=== PATIENT | female | born 1970 | race Caucasian/White ===

== ENCOUNTER 2022-08-23 16:39 | Outpatient (CLI) | payer OTHER, SELFPAY ==
--- NOTE | ~2022-08-23 | MM_ITS ---
EXAMINATION: MM screening tamela BI w giovanna HISTORY: Screening mammogram TECHNIQUE: Craniocaudal and mediolateral oblique 3-D tomosynthesis images were obtained and synthetic 2-D images were generated. CAD analysis was submitted and interpreted. COMPARISON: 01/2019 right screening and left diagnostic mammogram and complete left breast ultrasoun d examination BREAST PARENCHYMAL COMPOSITION: The breasts are extremely dense, which lowers the sensitivity of mamm ography. FINDINGS: There is no evidence of suspicious mass, calcification, or architectural distortion to sugg est malignancy in either breast. There has been no suspicious interval change. IMPRESSION: 1. No mammographic evidence of malignancy. 2. Recommend routine screening mammography in one year. Ultrasound may be of significant supplemental value for screening in the setting of extremely dense fibroglandular stroma, which may obscure rodríguez s. BI-RADS Category 1: Negative Reviewed, dictated and finalized at location A. IMPRESSION: 1. No mammographic evidence of malignancy. 2. Recommend routine screening mammography in one year. Ultrasound may be of si gnificant supplemental value for screening in the setting of extremely dense fi broglandular stroma, which may obscure masses. BI-RADS Category 1: Negative
== END 2022-08-23 16:40 | disposition home or self-care (01) ==
PROVIDERS: Visit Provider Obstetrics & Gynecology
DX: Z12.31 Encounter for screening mammogram for malignant neoplasm of breast (principal)
CPT/HCPCS: 77063; 77067

== ENCOUNTER 2023-05-17 15:27 | Outpatient (CLI) | payer OTHER, SELFPAY ==
--- NOTE | ~2023-05-17 | MR_ITS ---
EXAMINATION: MR FRIAS wo/w con DATE: 05/17/2023 16:25 INDICATION: Right-sided hearing loss with tinnitus and numbness/pressure to the right ear TECHNIQUE: Magnetic resonance imaging (MRI) of the brain and brainstem was performed without and with 11 mL Multihance intravenous contrast. Sequences included sagittal and axial T1-weighted FSE, axial diffusion-weighted FS EPI, axial T2*-weighted GRE, axial T2-weighted FLAIR Propeller, axial T2-weight ed Propeller, small ikwau-xv-shwh coronal FIESTA, small skxdl-nt-wxkv coronal T1-weighted FSE, and sm all rrmxp-yp-tdul axial T1-weighted SPGR. Postcontrast sequences included axial T1-weighted FSE, smal l vpksh-xf-kyuw coronal T1-weighted FSE, and small bzjwv-et-cexn axial T1-weighted SPGR. Apparent dif fusion coefficient (ADC) maps were created. COMPARISON: None. FINDINGS: There are no areas of restricted diffusion to suggest acute infarction. No intracranial hemorrhage or abnormal intracranial mass lesion. There are no intraparenchymal signal abnormalities seen on the ot her pulse sequences. The ventricles are symmetric and normal in size. There are no abnormal extra-axi al fluid collections. Normal seventh/eighth cranial nerve complexes. No cerebellopontine angles mass es. No evidence of mastoid or middle ear fluid. Flow voids are seen in the cerebral arteries on the T 2-weighted sequences consistent with their expected patency. Mild mucosal thickening the right ethmoi d sinus. Visualized orbits and soft tissues are unremarkable. There are no areas of abnormal enhancem ent on the post contrast images. IMPRESSION: 1. Normal brain MR . Reviewed, dictated and finalized at location A. IMPRESSION: 1. Normal brain MR .
== END 2023-05-17 15:28 ==
LOC: MICIMG 15:28
PROVIDERS: PCP Otolaryngology; Visit Provider Otolaryngology
DX: H90.5 Unspecified sensorineural hearing loss (principal)
CPT/HCPCS: 70553; A9577

== ENCOUNTER 2023-06-14 15:53 | Outpatient (CLI) | payer OTHER, SELFPAY ==
--- NOTE | ~2023-06-14 | CT_ITS ---
EXAMINATION: CT sinus wo con DATE: 06/14/2023 16:13 INDICATION: Chronic sinusitis. TECHNIQUE: Computed tomography (CT) of the paranasal sinuses was performed without intravenous contra st. Iterative reconstruction technique was employed. The dose-length product was 297.70 mGy-cm. COMPARISON: None FINDINGS: The frontal sinuses are hypoplastic. There is mild mucosal thickening in the right ethmoid sinuses. The maxillary and sphenoid sinuses are clear. There are bilateral Marti cells. The ostiomea angel units are patent. There is leftward deviation of the nasal septum. IMPRESSION: 1. Mild mucosal thickening in the right ethmoid sinuses. 2. Leftward deviation of the nasal septum. Reviewed, dictated and finalized at location E.
== END 2023-06-14 15:54 ==
PROVIDERS: PCP Otolaryngology; Visit Provider Otolaryngology
DX: J32.9 Chronic sinusitis, unspecified (principal); J34.2 Deviated nasal septum; J34.89 Other specified disorders of nose and nasal sinuses
CPT/HCPCS: 70486

== ENCOUNTER 2023-09-06 16:41 | Outpatient (CLI) | payer OTHER, SELFPAY ==
--- NOTE | ~2023-09-06 | MM_ITS ---
EXAMINATION: MM screening tamela BI w giovanna HISTORY: Screening mammogram TECHNIQUE: Craniocaudal and mediolateral oblique 3-D tomosynthesis images were obtained and synthetic 2-D images were generated. CAD analysis was submitted and interpreted. COMPARISON: 08/23/2022 BREAST PARENCHYMAL COMPOSITION:Dense: The breasts are extremely dense, which lowers the sensitivity o f mammography. FINDINGS: No suspicious mass, calcification, or architectural distortion are identified in either leonie ast to suggest malignancy. There has been no suspicious interval change. IMPRESSION: No mammographic evidence of malignancy. Recommend routine screening mammography in one year. BI-RADS Category 1: Negative Reviewed, dictated and finalized at location .
== END 2023-09-06 16:42 | disposition home or self-care (01) ==
LOC: ANHIMG 16:44
PROVIDERS: PCP Family Medicine; Visit Provider Obstetrics & Gynecology
DX: Z12.31 Encounter for screening mammogram for malignant neoplasm of breast (principal)
CPT/HCPCS: 77063; 77067

== ENCOUNTER 2024-08-19 16:57 | Emergency (ER) | payer OTHER, SELFPAY ==
--- NOTE | 2024-08-19 16:59 | ED_ITS ---
HPI - URI/Sore Throat General Chief Complaint: Upper Respiratory Infection Stated Complaint: Sinus Infection Symptoms Source: patient and RN notes reviewed Mode of arrival: ambulatory Limitations: no limitations History of Present Illness HPI Narrative: Patient is a 54-year-old female who presents to the [facility] with complaints of possible sinus infection. Patient reports nasal congestion, sinus pain, and sinus pressure starting this morning. Patient denies sore throat or ear pain. She does report infrequent nonproductive cough that she believes is due to the postnasal drip and congestion. She denies chest pain or shortness of breath. Denies recent fevers. Related Data Home Medications ?Medication ?Instructions ?Recorded ?Confirmed ?Last Taken ?Type alprazolam 0.5 mg tablet 0.5 mg PO TID 06/15/22 06/13/23 Unknown History cyclobenzaprine 10 mg tablet 10 mg PO TID 06/15/22 06/13/23 Unknown History zolpidem 10 mg tablet 10 mg PO QHS PRN 06/15/22 06/13/23 Unknown History eszopiclone 2 mg tablet mg 08/19/24 Unknown History Allergies Allergy/AdvReac Type Severity Reaction Status Date / Time amoxicillin Allergy Mild ITCHY/HOT Verified 08/19/24 17:08 Review of Systems Review of Systems: CONSTITUTIONAL: Denies fever, chills, or sweats. EYES: Denies visual changes, redness, or discharge. ENT: Denies otalgia and sore throat. Reports congestion and sinus pressure. CARDIOVASCULAR: Denies chest pain, palpitations, or edema. RESPIRATORY: Denies cough or dyspnea. GASTROINTESTINAL: Denies abdominal pain, nausea, vomiting, or diarrhea. GENITOURINARY: Denies dysuria or hematuria. SKIN: Denies rash or itching. MUSCULOSKELETAL: Denies back pain, joint pain, or myalgia. NEUROLOGIC: Reports headache but denies numbness or weakness. Pertinent positives per HPI. [facility] Past Medical History Medical History HPV in female Screening mammogram, encounter for GERD (gastroesophageal reflux disease) Migraines Cyst of right breast Anxiety and depression Surgical History Surgical History Delivery by section (02/28/00) primary c/s distress History of colposcopy (05/06/01) COLP/BX - HGSIL, SEVERE DYSPLASIA H/O LEEP (05/06/01) LEEP/BX-hgsil, severe dysplasia Hx of cholecystectomy (01/27/06) History of orthopedic surgery (01/28/08) foot surgery History of hysteroscopy (12/11/08) Hscope D&C/ Tubal ligation/ Endometrial Ablation Family History Family History Mother Heart disease Lung cancer Social History Social History Smoking packs per day: 1 Smoking cigarettes per day: 20.0 Smoking status: Current every day smoker Tobacco type: cigarettes Second hand tobacco smoke exposure: Yes Alcohol intake: never Substance use: never Substance use type: does not use Do You Feel Safe in your Home?: Yes Lack of Transportation: No Lack of Food: Never True Current Housing: I Have Housing Concerned About Future Housing: No Difficulty Paying Gas/Electric Bills: No Difficulty Paying for Meds: No Currently Unemployed: No Education: Associate Degree Difficulty w/ Childcare or Family Care: No Living arrangements: other Additional living arrangements comments: Occupation/Education: occupation 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 There is no relevant family history pertinent to the patient complaint. Exam Narrative: GENERAL: This is a well-nourished, well-developed patient, in no apparent distress. HEAD: normocephalic, atraumatic. EYES: Sclera clear/white. Vision is grossly intact. EARS: External ears normal, auditory canals clear and without drainage, TMs normal without perforation. Hearing grossly intact. NOSE: External nose normal. + congestion. THROAT: Mucous membranes moist, posterior pharynx clear. NECK: Neck supple, non-tender without lymphadenopathy, masses or thyromegaly. CARDIOVASCULAR: Regular rate and rhythm without murmurs, gallops, or rubs. RESPIRATORY: Clear to auscultation. Breath sounds equal bilaterally. No wheezes, rales, or rhonchi. GASTROINTESTINAL: Abdomen soft, non-tender, nondistended. Bowel sounds are active. No hepato-splenomegaly, or palpable masses. No guarding. SKIN: warm, intact with no suspicious lesions or rash, good texture and turgor. NEURO: awake, alert, and oriented to person, place and time. There were no obvious focal neurologic abnormalities. Course Course Level of Care: Express Care Visit Vital Signs Vital signs: Vital Signs Temperature 97.7 F 08/19/24 17:01 Pulse Rate 74 08/19/24 17:01 Respiratory Rate 16 08/19/24 17:01 Blood Pressure 104/75 08/19/24 17:01 Pulse Oximetry 100 08/19/24 17:01 Oxygen Delivery Room Air 08/19/24 17:01 Temperature 97.7 F 08/19/24 17:01 Pulse Rate 74 08/19/24 17:01 Respiratory Rate 16 08/19/24 17:01 Blood Pressure 104/75 08/19/24 17:01 Pulse Oximetry 100 08/19/24 17:01 Oxygen Delivery Room Air 08/19/24 17:01 Reviewed MDM - URI/Sore Throat Differential Diagnosis Differential diagnosis: Likely upper respiratory infection, sinusitis and viral infection Lab Data Labs: Lab Results 08/19/24 Range/Units 17:09 POC SARS CoV-2 Ag Negative (Negative) Critical Care Time Critical Care Time Critical Care Time: No Discharge Plan Discharge Clinical Impression: Acute bacterial rhinosinusitis Patient Disposition: Home Condition: Stable Instructions: Antibiotic Form, Sinusitis (ED) Additional Instructions: Go to the ER for any new or worsening symptoms. Avoid smoking/second-hand smoke. Continue to take Tylenol or Motrin for pain. Increase your Vitamin C intake. Use a humidifier or vaporizer at night. Take Medications as prescribed. Drink plenty of water. 8-10 glasses per day. Use flonase 2 times per day for 5 days then as needed Take mucinex 2 times per day and be sure to take with 8oz of water. Follow up with Primary provider if not getting better. Patient Language: German Prescriptions: New fluticasone propionate [Flonase Allergy Relief] 50 mcg/actuation spray,suspension 1 spray intranasal BID Qty: 16 0RF Rx Instructions: administer into each nostril azithromycin 250 mg tablet See Rx Instructions .ROUTE .COMPLEX Qty: 6 0RF Rx Instructions: For 250 mg dose pack: take 500 mg today (day 1), then 250 mg for 4 days (days 2-5) No Action eszopiclone 2 mg tablet cyclobenzaprine 10 mg tablet 10 mg PO TID alprazolam 0.5 mg tablet 0.5 mg PO TID zolpidem 10 mg tablet 10 mg PO QHS PRN progesterone micronized [Prometrium] 200 mg capsule 200 mg PO QHS 90 Days Qty: 90 3RF estradiol 1 mg tablet 1 mg PO DAILY 90 Days Qty: 90 3RF Follow-up/Referrals: PHYSICIAN,LINE SERVER [Primary Care Provider] - Time of Disposition: 17:26
[2024-08-19 17:01] VITALS: BP 104/75; PULSE 74; RESP 16; TEMP 36.5; O2SAT 100
[2024-08-19 17:24] LABS: EDCOVIDSCREEN Negative (Negative)
== END 2024-08-19 17:31 | disposition home or self-care (01) ==
PROVIDERS: Emergency Provider Nurse Practitioner
DX: J01.90 Acute sinusitis, unspecified (principal); Z20.822 Contact with and (suspected) exposure to COVID-19; F17.210 Nicotine dependence, cigarettes, uncomplicated; K21.9 Gastro-esophageal reflux disease without esophagitis; F41.9 Anxiety disorder, unspecified
CPT/HCPCS: 87426; 99213; G0463

== ENCOUNTER 2025-02-02 11:17 | Emergency (ER) | payer OTHER, SELFPAY ==
[2025-02-02 11:32] VITALS: BP 105/79; PULSE 81; RESP 16; TEMP 36.3; O2SAT 100
--- NOTE | 2025-02-02 11:52 | ED.GENADULT ---
HPI - General Adult General Chief complaint: Upper Respiratory Infection Stated complaint: Flu Symptoms Time Seen by Provider: 02/02/25 11:52 Source: patient Mode of arrival: ambulatory Limitations: no limitations History of Present Illness HPI narrative: 54-year-old female patient presents to [facility] with complaints of cold symptoms that started yesterday. Complaining of body aches, chills, fatigue, congestion and just overall not feeling well. Patient states he has been taking frqg-nno-kyeqlmg cold and flu medication. Denies fever Related Data Home Medications ?Medication ?Instructions ?Recorded ?Confirmed ?Last Taken ?Type alprazolam 0.5 mg tablet 0.5 mg PO TID 06/15/22 06/13/23 Unknown History cyclobenzaprine 10 mg tablet 10 mg PO TID 06/15/22 06/13/23 Unknown History zolpidem 10 mg tablet 10 mg PO QHS PRN 06/15/22 06/13/23 Unknown History eszopiclone 2 mg tablet mg 08/19/24 Unknown History alprazolam 0.25 mg tablet mg 02/02/25 Unknown History escitalopram oxalate 20 mg tablet mg 02/02/25 Unknown History eszopiclone 3 mg tablet mg 02/02/25 Unknown History spironolactone 50 mg tablet mg 02/02/25 Unknown History Allergies Allergy/AdvReac Type Severity Reaction Status Date / Time amoxicillin Allergy Mild ITCHY/HOT Verified 02/02/25 11:20 Review of Systems Review of Systems: CONSTITUTIONAL: Denies fever, Positive body aches and chills, denies sweats. EYES: Denies visual changes, redness, or discharge. ENT: positive rhinorrhea, congestion, sore throat, denies otalgia. CARDIOVASCULAR: Denies chest pain, palpitations, or edema. RESPIRATORY: Denies cough or dyspnea. GASTROINTESTINAL: Denies abdominal pain, nausea, vomiting, or diarrhea. GENITOURINARY: Denies dysuria or hematuria. SKIN: Denies rash or itching. MUSCULOSKELETAL: Denies back pain, joint pain, or myalgia. NEUROLOGIC: positive headache, denies numbness, or weakness. PSYCHIATRIC: Denies anxiety or depression. [facility] Past Medical History Medical History HPV in female Screening mammogram, encounter for GERD (gastroesophageal reflux disease) Migraines Cyst of right breast Anxiety and depression Surgical History Surgical History Delivery by section (02/28/00) primary c/s distress History of colposcopy (05/06/01) COLP/BX - HGSIL, SEVERE DYSPLASIA H/O LEEP (05/06/01) LEEP/BX-hgsil, severe dysplasia Hx of cholecystectomy (01/27/06) History of orthopedic surgery (01/28/08) foot surgery History of hysteroscopy (12/11/08) Hscope D&C/ Tubal ligation/ Endometrial Ablation Family History Family History Mother Heart disease Lung cancer Social History Social History Smoking packs per day: 1 Smoking cigarettes per day: 20.0 Smoking status: Current every day smoker Tobacco type: cigarettes Second hand tobacco smoke exposure: Yes Alcohol intake: never Substance use: never Substance use type: does not use Lack of Transportation: No Lack of Food: Never True Current Housing: I Have Housing Concerned About Future Housing: No Difficulty Paying Gas/Electric Bills: No Difficulty Paying for Meds: No Currently Unemployed: No Education: Associate Degree Difficulty w/ Childcare or Family Care: No Living arrangements: other Additional living arrangements comments: Occupation/Education: occupation 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 There is no relevant family history pertinent to the presenting complaint. Exam Narrative: GENERAL: Well-appearing, well-nourished, and in no acute distress. HEAD: Normocephalic, atraumatic. EYES: PERRLA and EOMI. ENT: Nares erythema edema noted bilaterally, no rhinorrhea or epistaxis. Mucous membranes moist. posterior pharynx with no erythema, tonsillar enlargement, exudates or lesions present. Bilateral TMs are clear no erythema foreign bodies canal. NECK: Supple. No lymphadenopathy CHEST: Clear to auscultation. No respiratory distress. HEART: Regular rate and rhythm. No murmur heard. Normal peripheral pulses. ABDOMEN: Soft, nontender, nondistended, normal active bowel sounds. EXTREMITIES: Normal range of motion. No edema. SKIN: Warm, dry, no rash. NEURO: No focal deficits. Alert and oriented x3. Course Course Level of Care: Express Care Visit Reevaluation(s) Reevaluation #1: Re-evaluated patient notified her that her port care testing for flu COVID and strep were all negative today. Discussed with patient that she can retest herself in about 2 days with an ofjv-zrq-[id number] COVID test just to be sure. Discussed with her to take fkfg-rpx-[id number] medications and did recommend some vitamin-C, vitamin-D and zinc to help boost her immune system. Discussed with patient if her symptoms worsen or she feels that she is getting a fever trouble breathing she is either call her primary doctor go the ER for further evaluation. Date: 02/02/25 Time: 12:36 Vital Signs Vital signs: Vital Signs Temperature 36.3 C L 02/02/25 11:32 Pulse Rate 81 02/02/25 11:32 Respiratory Rate 16 02/02/25 11:32 Blood Pressure 105/79 02/02/25 11:32 Pulse Oximetry 100 02/02/25 11:32 Temperature 36.3 C L 02/02/25 11:32 Pulse Rate 81 02/02/25 11:32 Respiratory Rate 16 02/02/25 11:32 Blood Pressure 105/79 02/02/25 11:32 Pulse Oximetry 100 02/02/25 11:32 At the time of my signature I agree with nursing past medical history, surgical, social, and family history. There is no relevant family history pertinent to the presenting complaint. MDM MDM Narrative Medical decision making narrative: Plan of care for patient is to tests today for influenza, COVID and strep. I will reassess patient was this has resulted. Differential Diagnosis Differential Diagnosis: Differential diagnosis: Allergic rhinitis, chronic sinusitis, tonsillitis, acute sinusitis, infectious mononucleosis, seasonal influenza, pertussis, diphtheria, meningococcal disease, viral syndrome, viral bronchitis, RSV, COVID-19 Lab Data Labs: Lab Results 02/02/25 02/02/25 Range/Units 12:05 12:29 POC Influenza A Ag Negative (Negative) POC Influenza B Ag Negative (Negative) POC SARS CoV-2 Ag Negative (Negative) POC Grp A Strep Screen Negative (Negative) Critical Care Time Critical Care Time Critical Care Time: No Discharge Plan Discharge Clinical Impression: Viral URI Patient Disposition: Home Condition: Stable Instructions: Antibiotic Form, Viral Syndrome (ED) Additional Instructions: Viral illness may last between 7-12days; antibiotic is NOT recommended at this time. Recommend antihistamine such as Benadryl at night time and Claritin/Zyrtec/Nia during the day Cough syrup may cause drowsiness; avoid driving or take it at night time. may use dvig-gbd-hlaarug vitamins such as vitamin-C, 2000 mg in the morning and 2000 mg in the evening. Vitamin D 3 2000 IU daily, and zinc 50 mg daily to help with viral symptoms that should cut down how long have a virus. Also, recommend symptomatic treatment includes: rest, fluids, and increase humidity of the air at home. Recommend Acetaminophen or nonsteroidal anti-inflammatory agents (NSAIDs) as directed in the bottle to reduce fever and/pain/headache. Avoid smoking/second-hand smoke. Limit visits to areas with large crowds. Please schedule a follow-up visit with your personal physician for further evaluation and treatment within 3-5days. Including recheck and discussion of your blood pressure. If your symptoms persist, change or worsen significantly before you can contact your personal physician then please, without delay, go to the emergency department for further evaluation. Patient Language: Syriac Prescriptions: No Action alprazolam 0.25 mg tablet spironolactone 50 mg tablet escitalopram oxalate 20 mg tablet eszopiclone 3 mg tablet eszopiclone 2 mg tablet fluticasone propionate [Flonase Allergy Relief] 50 mcg/actuation spray,suspension 1 spray intranasal BID Qty: 16 0RF Rx Instructions: administer into each nostril cyclobenzaprine 10 mg tablet 10 mg PO TID alprazolam 0.5 mg tablet 0.5 mg PO TID zolpidem 10 mg tablet 10 mg PO QHS PRN progesterone micronized [Prometrium] 200 mg capsule 200 mg PO QHS 90 Days Qty: 90 3RF estradiol 1 mg tablet 1 mg PO DAILY 90 Days Qty: 90 3RF Follow-up/Referrals: Jaqueline,Erich Kohli MD [Primary Care Provider, Unknown] Stand Alone Forms: Work/School Release IP Time of Disposition: 12:33
[2025-02-02 12:07] LABS: EDCOVIDSCREEN Negative (Negative); EDINFLUASCREEN Negative (Negative); EDINFLUBSCREEN Negative (Negative)
[2025-02-02 12:31] LABS: EDSTREPNEGPOS1 Negative (Negative)
== END 2025-02-02 12:36 | disposition home or self-care (01) ==
PROVIDERS: Emergency Provider Nurse Practitioner Family; PCP Family Medicine
DX: J06.9 Acute upper respiratory infection, unspecified (principal); Z20.822 Contact with and (suspected) exposure to COVID-19; F17.210 Nicotine dependence, cigarettes, uncomplicated; K21.9 Gastro-esophageal reflux disease without esophagitis; F41.9 Anxiety disorder, unspecified; F32.A Depression, unspecified
CPT/HCPCS: 87081; 87426; 87804; 87880; 99213; G0463